=== PATIENT | female | born 2000 | race Caucasian/White ===

== ENCOUNTER 2019-01-12 12:27 | Emergency (ER) | payer OTHER ==
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
[2019-01-12] MEDS ORDERED: ACETAMINOPHEN 325 MG TAB ONE ×2 (14:27)
[2019-01-12] MEDS ORDERED: ACETAMINOPHEN 325 MG TAB PO ONE (14:28)
[2019-01-12] MEDS ORDERED: IBUPROFEN 600 MG TAB PO ONE (15:26)
[2019-01-12 15:42] VITALS: BP 103/56
== END 2019-01-12 15:42 | disposition home or self-care (01) ==
DX: S00.83XA Contusion of other part of head, initial encounter (principal); W01.198A Fall on same level from slipping, tripping and stumbling with subsequent striking against other object, initial encounter; Y92.9 Unspecified place or not applicable; Y99.9 Unspecified external cause status; Y93.9 Activity, unspecified

== ENCOUNTER 2019-03-02 22:22 | Emergency (ER) | payer OTHER ==
[2019-03-02 22:27] VITALS: BP 124/80
--- NOTE | 2019-03-02 22:30 | EDPHY ---
H & P Stated Complaint: ALLERGIC REACTION TO PCN, RASH FOR 2 DAYS. TREATING STREP Time Seen by Provider: 03/02/19 22:29 - Personal History LMP (Females 10-55): IUD In Place Current Tetanus/Diphtheria Vaccine: Yes Current Tetanus Diphtheria and Acellular Pertussis (TDAP): Yes - Medical/Surgical History Hx Asthma: No Hx Chronic Respiratory Disease: No Hx Diabetes: No Hx Cardiac Disease: No Hx Renal Disease: No Hx Cirrhosis: No Hx Alcoholism: No Hx HIV/AIDS: No Hx Splenectomy or Spleen Trauma: No Other PMH: adhd - Social History Smoking Status: Never smoked Constitutional: Initial Vital Signs Temperature (C) 36.9 C 03/02/19 22:24 Heart Rate 76 03/02/19 22:24 Respiratory Rate 18 03/02/19 22:24 Blood Pressure 124/80 H 03/02/19 22:24 O2 Sat (%) 97 03/02/19 22:24 O2 Delivery Mode Room Air Allergies/Adverse Reactions: penicillin G Allergy (Verified 03/02/19 22:27) Home Medications: Medication Instructions Recorded Azithromycin [Zithromax] 250 mg PO DAILY #6 tab 03/02/19 Dextroamphetamine/Amphetamine 37.5 mg PO 03/02/19 [Mydayis ER 37.5 mg Capsule] Medical Decision Making ED Course/Re-evaluation: CHIEF COMPLAINT: Sore throat, allergic reaction to penicillin HISTORY OF PRESENT ILLNESS: The patient is a 18 y/o female with a history of mono complaining of recurrent throat pain after being diagnosed with strep. The patient was diagnosed with strep on Monday and prescribed Penicillin. On , 2 days ago, she developed a rash on her forehead and was advised to take a new antibiotic and stop taking Penicillin. She went to the pharmacy and they told the patient that they were out of the antibiotic and to come back on Monday. Today she developed the sore throat again, and decided to present to the emergency department. No fever, headache, body aches, lightheadedness, chest pain, heart palpitations, shortness of breath, cough, abdominal pain, urinary or bowel complaints, numbness, paresthesias. REVIEW OF SYSTEMS: A comprehensive 10 system review of systems is otherwise negative aside from elements mentioned in the history of present illness and medical decision making. PHYSICAL EXAM: HR, BP, O2 Sat, RR. Temp noted General Appearance: Alert, well hydrated, appropriate, and non-toxic appearing. Head: Atraumatic without scalp tenderness or obvious injury Eyes: Pupils equal, round, reactive to light and accommodation, EOMI, no trauma , no injection. Ears: Clear bilaterally, no perforation, normal landmarks Nose: Atraumatic, no rhinorrhea, clear. Throat: There is no erythema or exudates, no lesions, normal tonsils, mucus membranes moist. Neck: Supple, 2+ carotid upstroke, nontender, no lymphadenopathy. Respiratory: No retractions, no distress, no wheezes, and no accessory muscle use. Lungs are clear to auscultation bilaterally. Cardiovascular: Regular rate and rhythm, no murmurs, rubs, or gallops. Bilateral carotid, radial, dorsalis pedis, and posterior tibial pulses intact. Good capillary refill all extremities. Gastrointestinal: Abdomen is soft, nontender, non-distended, no masses, no rebound, no guarding, no peritoneal signs. Musculoskeletal: Normal active ROM of all extremities, atraumatic. Neurological: Alert, appropriate, and interactive. The patient has normal DTRs and non-focal cranial nerves, motor, sensory, and cerebellar exam. Skin: Rash on forehead. Good turgor, no nodules on palpation. Past medical history: ADHD, mono Past surgical history: Denies Family history: Denies Social history: Student at , single, lives in [place] DIAGNOSTICS/PROCEDURES/CRITICAL CARE TIME: Not indicated. DIFFERENTIAL DIAGNOSIS: The differential diagnosis included but was not limited to penicillin allergy, angioedema, anaphylaxis, anaphylactoid reaction, urticarial reaction, and other infectious causes for skin rash. MEDICAL DECISION MAKING: The patient is a 18 y/o female with a history of mono presenting with recurrent throat pain after being diagnosed with strep. The patient was diagnosed with strep on Monday and prescribed Penicillin. On , 2 days ago, she developed a rash on her forehead and was advised to take a new antibiotic and stop taking Penicillin. Today she developed the sore throat again after not being able to clam picker the antibiotic, and decided to present to the emergency department. On exam she has a rash on her forehead but a normal oropharynx. 6mg PO Decadron and 500mg PO Zithromax administered. I have also given her a prescription of Zithromax. Return precautions provided; patient is comfortable with this plan. - Data Points Medications Given: Discontinued Medications Azithromycin (Zithromax) 500 mg PO EDNOW ONE PRN Reason: Protocol Stop: 03/02/19 22:33 Last Admin: 03/02/19 22:38 Dose: 500 mg Dexamethasone (Decadron Injection) 6 mg PO EDNOW ONE Stop: 03/02/19 22:33 Last Admin: 03/02/19 22:38 Dose: 6 mg Departure - Departure Disposition: Home, Routine, Self-Care Clinical Impression: Allergic reaction, Strep pharyngitis Condition: Good Instructions: Strep Throat (ED), Antibiotic Medication Allergy (ED) Additional Instructions: 1. Take Zithromax as prescribed. 2. Follow-up with your primary doctor within 72 hours. 3. Return to the Emergency Department for fever, chest pain, shortness of breath , increasing pain or other worsening of condition. Referrals: [facility],. [Clinic] - As per Instructions Prescriptions: Azithromycin [Zithromax] 250 mg PO DAILY #6 tab Report Scribed for: Jamison Calles Report Scribed by: Nicci Stockton Date of Report: 03/02/19 Time of Report: 22:42
[2019-03-02] MEDS ORDERED: DEXAMETHASONE 10 MG/ML VIAL PO ONE (22:32)
[2019-03-02] MEDS ORDERED: AZITHROMYCIN 250 MG TAB PO ONE (22:32)
== END 2019-03-02 22:45 | disposition home or self-care (01) ==
DX: R21 Rash and other nonspecific skin eruption (principal); T36.0X5A Adverse effect of penicillins, initial encounter; J02.0 Streptococcal pharyngitis
CPT/HCPCS: J1100

== ENCOUNTER 2019-03-03 11:08 | Emergency (ER) | payer OTHER ==
[2019-03-03 11:16] VITALS: BP 152/74
[2019-03-03] MEDS ORDERED: IBUPROFEN 600 MG TAB PO ONE (11:40)
[2019-03-03] MEDS ORDERED: ALBUTEROL 3 ML DEYVIAL IH ONE (11:40)
--- NOTE | 2019-03-03 12:31 | EDPHY ---
General Time Seen by Provider: 03/03/19 11:25 Narrative: CLINICAL IMPRESSION: Shortness of breath, reactive airway disease, musculoskeletal chest wall pain ASSESSMENT/PLAN: 18-year-old female presents to the emergency department for the 2nd time in 2 days with vague complaints of reproducible left anterior chest tightness worsened with palpation and rotation, shortness of breath and feeling jittery. Patient was diagnosed with strep throat recently by the [facility], given penicillin, seen in the emergency department yesterday after an apparent allergic reaction to penicillin, changed to azithromycin and given Decadron. She returns today stating that she has chest tightness and shortness of breath. Rash is improving. She was given an albuterol nebulizer with minimal improvement. Chest x-ray clear without acute cardiopulmonary abnormality. EKG shows normal sinus rhythm, no acute ST or T-wave changes or suggestion of Brugada, WPW or pericarditis. Pain is very reproducible to palpation and I suspect is musculoskeletal in source. Vital signs are stable. No tachycardia or hypoxia. She is Wells score 0 PERC negative. D-dimer was not ordered. She denies anxiety or underlying panic. She was however reassured that cardiac workup was negative. For reasons I am unclear on, patient has not yet filled her new prescription for azithromycin that was given yesterday morning by [facility] telling me "all pharmacies are too far away from her and she needs to fill it at the [facility]" however patient took an Uber to the ED today. I have encouraged her to fill this at any local pharmacy today and began taking this. Follow up with primary care. Warning signs for return to ED sooner discussed and discharge. DIFFERENTIAL DX: Differential includes but not limited to costochondritis, musculoskeletal chest wall pain, ACS, pericarditis, bronchitis, reactive airway disease, pneumonia ED PROCEDURES: See lab and/or imaging results below ED COURSE: 12:30 p.m.: Patient reassessed after albuterol neb and ibuprofen. States her pain is no better and is "may be getting worse". She would like to "have her heart checked out". She has no personal or family history of cardiac disease at young age. Pain is reproducible to palpation. Will plan for EKG and chest x -ray. Patient reports no underlying history of anxiety or panic. 1:15 p.m.: EKG shows normal sinus rhythm, no acute ST or T-wave changes, rate of 82. Chest x-ray read by Radiology, no acute cardiopulmonary abnormality, possible mild airway disease. Patient informed of reassuring results. She is laying comfortably in the bed working on her computer and appears in no distress. Vital signs are stable, no hypoxia. When I ask patient why she has not filled her azithromycin, she states she would have to wait till tomorrow to get it at [facility] because that is closest to her. However she took an Uber to the emergency department today. I told her I am not clear why she cannot take her rx over to a local pharmacy in town or walk to a local pharmacy and patient states "they are all too far away". CHIEF COMPLAINT: Persistent sore throat, shortness of breath, left anterior chest pain HPI: 18-year-old female presents to the emergency department for the 2nd time in 2 days with complaints of sore throat, left anterior chest tightness, shortness of breath and "feeling jittery". Patient was apparently recently diagnosed with strep throat last week at the [facility]. She was prescribed penicillin and apparently broke out any rash. She was seen yesterday for an allergic reaction, given Decadron and changed to azithromycin with an initial dose given yesterday in the ED. Patient reports she has taken both penicillin and azithromycin in the past without allergic response. She was recently diagnosed with a dairy allergy. Today she states she has had left anterior reproducible chest wall tightness and shortness of breath but states this has been going on for a week and she forgot to mention it yesterday. It is reproducible to palpation in worst with movement. No increased pain with deep inspiration. No personal or family history of cardiovascular disease. She is a nonsmoker. No history of hypertension, diabetes or high cholesterol. She has been using ice packs to the chest. She reports she has had a cough with her illness. She was given a new prescription for azithromycin Monday by the [facility] and despite being seen yesterday and today still has not filled the azithromycin stating that "she would have to get it filled tomorrow at the [facility] because every other pharmacy is too far away". However, patient took an uber to the ED today. PAST MEDICAL HISTORY: Dairy allergy, recent history of strep throat See triage summary and nurse notes for addition applicable history Pertinent Past Surgical History: None reported Family History: Noncontributory Social History: Student at [employer] REVIEW OF SYSTEMS: A full 10 point review of systems was negative except for those mentioned in HPI. PHYSICAL EXAM: General Appearance: Alert, oriented, appropriate, cooperative, NAD, well hydrated, non-toxic appearing, VSS, no audible wheezing, stridor, respiratory distress, no hypoxia. HEENT: TMs are clear bilaterally no perforation or FB, no injection, no evidence of serous or mucopurulent otitis. Oropharynx clear , mild erythema no exudates, no tonsillar hypertrophy or asymmetry. Dentition without abnormality. Eyes: PERRLA, no acute vision change, nystagmus, swelling, discharge, pain or photosensitivity. Conjunctiva pink, no pallor or injection Neck: Supple, nontender, no lymphadenopathy, no midline pain, FROM, no meningismus. Respiratory: There are no retractions, lungs are clear to auscultation. Reproducible left anterior chest wall pain to palpation, exacerbated by rotation of the trunk. Cardiac: Regular rate and rhythm, no murmurs or gallops. Skin: Warm, dry, no rashes, no nodules on palpation. MEDICAL DECISION MAKING: Patient was seen independently. Secondary supervising physician at time of evaluation was: Dr. Escobedo. Diagnosis: Reactive airway disease, reproducible chest wall discomfort, sore throat. New, requires workup Summary: See Assessment and Plan for summary of ED visit Independent visualization of images, tracing, or specimens: Yes. Decision to obtain medical records or history from someone other than the patient: No Review / Summarize previous medical records: Reviewed yesterday ED notes Patient Progress: Stable for discharge. - Diagnostics Imaging Results: Imaging Impressions Chest X-Ray 03/03/19 12:31 Impression: Query mild airways disease - History Smoking Status: Never smoked - Objective Vital Signs: Initial Vital Signs Temperature (C) 36.5 C 03/03/19 11:14 Heart Rate 73 03/03/19 11:14 Respiratory Rate 16 03/03/19 11:14 Blood Pressure 152/74 H 03/03/19 11:14 O2 Sat (%) 98 03/03/19 11:14 O2 Delivery Mode Room Air Allergies/Adverse Reactions: penicillin G Allergy (Verified 03/03/19 11:14) Home Medications: Medication Instructions Recorded Azithromycin [Zithromax] 250 mg PO DAILY #6 tab 03/02/19 Dextroamphetamine/Amphetamine 37.5 mg PO 03/02/19 [Mydayis ER 37.5 mg Capsule] Medications Given: Discontinued Medications Albuterol (Proventil Neb) 3 ml IH EDNOW ONE Stop: 03/03/19 11:41 Last Admin: 03/03/19 11:51 Dose: 3 ml Ibuprofen (Motrin) 600 mg PO EDNOW ONE Stop: 03/03/19 11:41 Last Admin: 03/03/19 11:51 Dose: 600 mg Departure - Departure Disposition: Home, Routine, Self-Care Clinical Impression: Tonsillitis, Musculoskeletal chest pain Condition: Good Instructions: Tonsillitis (ED), Chest Wall Pain (ED) Additional Instructions: DISCHARGE INSTRUCTIONS FROM YOUR DOCTOR Thank you for visiting our emergency department today. You were treated by a physician melter assistant today and your case was reviewed with our ED Attending physician. Please keep in mind that discharge from the emergency department does not mean that there is nothing wrong - it simply means that we have not identified an emergency condition that requires further evaluation or treatment in the hospital. You should always plan to follow up with primary care for re- evaluation of your condition in the next 2-3 days. If you have been referred to a specialist, please call as soon as possible (today or tomorrow) to schedule your follow up appointment at the appropriate time. PLEASE GO TO ANY LOCAL PHARMACY TO FILL THE AZITHROMYCIN PRESCRIPTION THAT WAS GIVEN TO YOU BY THE [facility]. IT IS IMPORTANT THAT YOU TAKE THIS TO HELP TREAT STREP THROAT. YOU DID RECEIVE A DOSE OF THIS YESTERDAY IN THE EMERGENCY DEPARTMENT. PHARMACIES ARE OPEN TODAY. EKG AND CHEST X-RAY TODAY ARE BOTH NORMAL WITH NO ABNORMALITY. CONTINUE USING IBUPROFEN AND TRY HOT COMPRESSES TO THE CHEST. FOLLOW-UP WITH [facility] THIS WEEK. RETURN TO THE EMERGENCY DEPARTMENT FOR WORSENING SYMPTOMS, WORSENING THROAT SWELLING, DIFFICULTY HANDLING YOUR OWN SALIVA, OR ANY OTHER CONCERNS. People present with illnesses and injuries in different ways, and it is always possible that we have missed something. You may always return for re-evaluation if symptoms worsen or if they are not improving or if you develop new/different symptoms. Again, thank you for choosing our emergency department. We hope that you feel better. Referrals: NONE *PRIMARY CARE P,. [Primary Care Provider] - As per Instructions [facility] [Clinic] - 1-2 days without fail
--- NOTE | 2019-03-03 13:00 | CPEKG ---
Test Reason : OPEN Blood Pressure : / mmHG Vent. Rate : 082 BPM Atrial Rate : 083 BPM P-R Int : 135 ms QRS Dur : 090 ms QT Int : 379 ms P-R-T Axes : 065 053 024 degrees QTc Int : 443 ms Sinus rhythm Confirmed by Timothy Escobedo ([id number]) on 03/03/2019 1:00:08 PM Referred By: Timothy Escobedo Confirmed By:Timothy Escobedo
== END 2019-03-03 13:33 | disposition home or self-care (01) ==
DX: J03.90 Acute tonsillitis, unspecified (principal); R07.89 Other chest pain
CPT/HCPCS: J7613